=== PATIENT | male | born 1945 | race Caucasian/White ===

== ENCOUNTER 2020-02-09 07:47 | Inpatient (IN) ==
--- NOTE | 2020-01-12 10:53 | PAT Medication Instructions ---
Medication Instructions Date of Service January 12, 2020 Home Medications acetaminophen [Tylenol Extra Strength] 1,000 mg PO Q6H PRN aspirin [Aspir-81] 81 mg PO BID atorvastatin 10 mg PO PM carvedilol 12.5 mg PO BID cholecalciferol (vitamin D3) 25 mcg PO BID ibuprofen 200 mg PO Q6H PRN lisinopril 20 mg PO BID nitroglycerin [Nitrostat] 0.4 mg SUBLINGUAL UD PRN omeprazole 20 mg PO QAM spironolactone 25 mg PO BID Continue as directed nitroglycerin [Nitrostat] 0.4 mg SUBLINGUAL UD PRN ASK your surgeon for instructions aspirin [Aspir-81] 81 mg PO BID ibuprofen 200 mg PO Q6H PRN DO NOT take the morning of surgery cholecalciferol (vitamin D3) 25 mcg PO BID lisinopril 20 mg PO BID spironolactone 25 mg PO BID Take morning of surgery With a small sip of water, OTHERWISE NOTHING TO EAT OR DRINK AFTER MIDNIGHT: acetaminophen [Tylenol Extra Strength] 1,000 mg PO Q6H PRN (if needed, may be taken up to four hours before surgery) carvedilol 12.5 mg PO BID omeprazole 20 mg PO QAM Take evening before surgery acetaminophen [Tylenol Extra Strength] 1,000 mg PO Q6H PRN (if needed) atorvastatin 10 mg PO PM carvedilol 12.5 mg PO BID cholecalciferol (vitamin D3) 25 mcg PO BID lisinopril 20 mg PO BID spironolactone 25 mg PO BID Other Notes If you have any questions please call us at [phone] or [phone] or [phone] or [phone]
--- NOTE | 2020-01-14 11:06 | History & Physical Report ---
Date of Service January 14, 2020 date of surgery: 02-09-20 Assessment & Plan (1) Arthritis of knee, left: Risks and benefits of procedure discussed in detail today, patient would like to proceed with a Left total knee replacement at [facility] as scheduled. will obtain medical clearance from Dr Delatorre office prior to surgery as well as obtain PATs at [facility]. Will place on ASA 81mg po bid x 1 month post op, f/u 2 weeks post op for routine post-operative care and x-ray, sooner if having any problems. will make arrangements for HHPT at the time of discharge. At this point in time, has failed conservative measures and would like to proceed with surgical intervention. The risks and benefits have been discussed including, but not limited to, risk of infection, nerve injury, stiffness, loss of motion, failure to improve, etc. Reasonable outcomes and options of treatment were discussed. An explanation of appropriate alternatives to the procedure that may be advantageous were discussed and their risks and benefits, as well as the risks and benefits of not proceeding with treatment. I offered to answer any additional inquiries concerning the treatment involved. All the patient's questions were answered. The patient is agreeable, understanding of the treatment plan and alternatives, and wishes to proceed with the treatment plan. History of Present Illness Chief Complaint: left knee pain Primary Care Provider: Willam Godfrey Mr Conway is a 74 year old male who complains of left knee pain, presents for pre-op eval prior to a left total knee replacement at [facility]. He presents with pain and instability on the left side. He states that the symptoms have been chronic traumatic. Patient reports that he fell off of a barn roof when he was a child and injured his left knee, had previous left knee arthroscopy early . The symptoms occur constantly with intermittent worsening. Currently the patient states that the symptoms are moderate-severe and is described as aching, sharp and throbbing. The symptoms occur continuously. The symptoms are aggravated by ascending stairs, daily activities, first steps while awake, kneeling, repetitive activities, sleeping on the affected side, squatting, standing, walking and weight bearing. In addition to left knee pain the patient is also experiencing decreased mobility, difficulty bending, difficulty going to sleep, limping, nighttime awakening, pain, stiffness, tenderness, weakness, "giving out", clicking, cracking, crepitus and crunching. Prior NSAIDs include IBU and Aleve. Prior pain medications include Tylenol. had previous knee arthroscopy approximately 15-20 years ago. Allergies Allergy/AdvReac Type Severity Reaction Status Date / Time No Known Allergies Allergy Verified 01/10/20 14:25 Home Medications Home Medications Medication Instructions Recorded Confirmed Type acetaminophen [Tylenol Extra 1,000 mg PO Q6H PRN 01/10/20 01/10/20 History Strength] aspirin [Aspir-81] 81 mg PO BID 01/10/20 01/10/20 History atorvastatin 10 mg PO PM 01/10/20 01/10/20 History carvedilol 12.5 mg PO BID 01/10/20 01/10/20 History cholecalciferol (vitamin D3) 25 mcg PO BID 01/10/20 01/10/20 History [Vitamin D3] ibuprofen 200 mg PO Q6H PRN 01/10/20 01/10/20 History lisinopril 20 mg PO BID 01/10/20 01/10/20 History nitroglycerin [Nitrostat] 0.4 mg SUBLINGUAL UD PRN 01/10/20 01/10/20 History omeprazole 20 mg PO QAM 01/10/20 01/10/20 History spironolactone 25 mg PO BID 01/10/20 01/10/20 History Past Med/Surg History Medical History Diverticular disease Enlarged prostate GERD (gastroesophageal reflux disease) Hyperlipidemia Hypertension Myocardial Infarction ER-WENT TO [facility]-CARDIAC CATH-ANGIO[LASTY/ STENT Surgical History History of arthroscopy LEFT KNEE History of cardiac cath 1 STENT-2010 [facility] History of colonoscopy MULTIPLE Family History (Updated 01/14/20 @ 11:06 by Rajan Johnson PA-C) Unknown No family history of adverse response to anesthesia Social History Preferred Language: Colombian Communication Ability: Effective 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: No Beliefs That Will Affect Care: None Current Living Situation: Spouse and Family Other Information That Helps Us Care for You: No Feels Safe at Home: Yes Safety Concerns: Feels Safe At This Time Smoking Status: Former smoker Do You Dip or Chew Tobacco: No ; Smoking End Date: QUIT 1990 ; Second Hand Exposure: Yes (ON OCC AT WORK) ; Hx Alcohol Use: Yes Alcohol type: beer Hx Substance Use: No Review of Systems Review of Systems: All systems reviewed & are unremarkable except as noted in HPI & below Constitutional: no fever, no chills and no sweats Respiratory: no cough and no dyspnea Cardiovascular: no chest pain, no dyspnea and no orthopnea Gastrointestinal: no abdominal pain, no nausea and no vomiting Musculoskeletal: as per Subjective / HPI Physical Exam Physical Exam: Ht: 6ft Wt: 96.16 kg BP: 134/62 Constitutional: WD/WN, vitals as above no acute distress Respiratory: normal respiratory effort, lungs clear to auscultation no respiratory distress, no labored breathing and does not use accessory muscles Cardiovascular: RRR, no murmur, no edema Gastrointestinal (Abdomen): normal bowel sounds, soft, nontender, no hepatosplenomegaly Musculoskeletal: Knee: + knee abnormal to inspection (left knee- ), + effusion (+2 effusion), + surgical incision (well healed portals), + limited ROM of knee (ROM 0/3/110), + knee ROM with crepitation, + joint line tenderness (medial joint line) and + Carlton's sign positive; no deformity, no skin erythema, no ecchymosis, no valgus laxity, no varus laxity, anterior drawer test negative, Smitha's sign negative and pivot shift test negative Results & Data Results & Data ([facility]) Diagnostic Findings Left Knee X-ray: left knee series confirm advanced degenerative changes to the left knee with varus alignment, greatest medial compartments and patellofemoral joint, showing joint space narrowing, osteophyte formation and subchondral sclerosis. no acute bony pathology noted.
--- NOTE | 2020-01-14 12:59 | Anesthesiology Consultation ---
Date of Service January 14, 2020 Assessment & Plan (1) Encounter for pre-operative examination: COVID Status: As of 01/13 assessment, patient denies travel to endemic area, known exposure/sick contacts, or symptoms of COVID19. Preoperative COVID19 testing to be completed prior to surgery. Chart Review Chart Review: Acceptable Risk for Surgery (pending surgeon-ordered PCP clearance 01/25) and Patient seen in Pre Admission Testing Teaching & Discussion Instructed NPO after midnight before surgery, except medications with 15 cc of water. Medication instructions provided according to the PAT guidelines. History Surgery Operation Date: 02/09/20 09:40 Proposed Procedures p Left Total Knee Arthroplasty - Alonzo Randall DO Height/Weight Height: 6 ft Weight: 101.4 kg Allergies Allergy/AdvReac Type Severity Reaction Status Date / Time No Known Allergies Allergy Verified 01/10/20 14:25 Medications Home Medications Medication Instructions Recorded Confirmed Last Taken acetaminophen [Tylenol Extra 1,000 mg PO Q6H PRN 01/10/20 01/10/20 Unknown Strength] aspirin [Aspir-81] 81 mg PO BID 01/10/20 01/10/20 Unknown atorvastatin 10 mg PO PM 01/10/20 01/10/20 Unknown carvedilol 12.5 mg PO BID 01/10/20 01/10/20 Unknown cholecalciferol (vitamin D3) 25 mcg PO BID 01/10/20 01/10/20 Unknown [Vitamin D3] ibuprofen 200 mg PO Q6H PRN 01/10/20 01/10/20 Unknown lisinopril 20 mg PO BID 01/10/20 01/10/20 Unknown nitroglycerin [Nitrostat] 0.4 mg SUBLINGUAL UD PRN 01/10/20 01/10/20 Unknown omeprazole 20 mg PO QAM 01/10/20 01/10/20 Unknown spironolactone 25 mg PO BID 01/10/20 01/10/20 Unknown Past Medical History Medical History CAD (coronary artery disease) Previously followed with Dr. 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 Past Family History Family History Unknown No family history of adverse response to anesthesia Past Surgical History Surgical History History of arthroscopy LEFT KNEE History of cardiac cath 1 [facility] History of colonoscopy MULTIPLE Past Anesthesia History No Hx of Anesthesia Complications and No Family Hx of Anesthesia Complications History of PONV No Hx of PONV and No Hx of Motion Sickness Social History Smoking Status: Former smoker Do You Dip or Chew Tobacco: No Smoking End Date: QUIT 1990 Hx Alcohol Use: Yes Alcohol type: beer alcohol intake frequency: holidays/special occasions only Hx Substance Use: No Review of Systems Pt denies any recent chest pain, shortness of breath, palpitations, cough, fever or URI. Physical Exam Vital Signs BP: 113/66 P: 50 SPO2: 99% RA T: 98.6 F R: 16 ENMT Mouth: + edentulous Thyromental Distance: > or= 3.5 Finger Breadths (4) Mallampati Class: I Neck normal visual inspection; neck extension not limited Respiratory normal respiratory effort Auscultation: lungs clear to auscultation bilaterally Cardiovascular Rate/Rhythm: regular rhythm and + bradycardic Heart Sounds: no murmur Extremities: no edema Testing Laboratory Results 01/14/20 13:15 01/14/20 13:15 PT 11.4 Seconds (9.0-12.0) 01/14/20 13:15 INR 1.1 (0.9-1.1) 01/14/20 13:15 APTT 27.6 Seconds (21.0-31.0) 01/14/20 13:15 Hemoglobin A1c 5.7 % (4.5-5.6) H 01/14/20 13:15 Urine Color Yellow 01/14/20 Unknown Urine Appearance Clear (Clear) 01/14/20 Unknown Urine pH 5.0 (4.5-7.5) 01/14/20 Unknown Ur Specific [place] 1.019 (1.000-1.030) 01/14/20 Unknown Urine Protein Negative (Negative) 01/14/20 Unknown Urine Glucose (UA) Negative (Negative) 01/14/20 Unknown Urine Ketones Negative (Negative) 01/14/20 Unknown Urine Nitrite Negative (Negative) 01/14/20 Unknown Ur Leukocyte Esterase Negative (Negative) 01/14/20 Unknown Blood Type O Negative 01/14/20 13:15 Antibody Screen NEGATIVE 01/14/20 13:15 Electrocardiogram Date: 01/14/20 Findings: + SB @ (49bpm) Chest X-Ray Date: 01/14/20 Findings: + NAD
--- NOTE | 2020-01-14 13:39 | XRay Report ---
XR chest Pre-admission PA/Lat HISTORY: 74 years-old Male pat preoperative exam. No acute chest complaints COMPARISON: None TECHNIQUE: PA and lateral views of the chest FINDINGS: Cardiomediastinal and hilar silhouettes are within normal limits. Nipple shadow projects over the rig ht lung base. No pneumothorax, pleural effusion, airspace consolidation or overt pulmonary edema. Bon es of the chest appear grossly intact. Degenerative changes of the shoulders and spine. IMPRESSION: No acute process. ACT 112: Negative or not required by law. The above report was generated using voice recognition software. It may contain grammatical, syntax o r spelling errors. Electronically signed by: Nigel Huang M.D. 01/14/2020 1:37 PM
[2020-01-14 13:55] LABS: INR 1.1 (0.9-1.1); Partial Thromboplastin Time 27.6 Seconds (21.0-31.0); Prothrombin Time 11.4 Seconds (9.0-12.0)
[2020-01-14 13:56] LABS: Appearance Urine Clear (Clear); Bilirubin Urine Negative (Negative); Blood Urine Negative (Negative); Color Urine Yellow; Glucose Urine UA Negative (Negative); Ketones Urine Negative (Negative); Leukocyte Esterase Urine Negative (Negative); Nitrite Urine Negative (Negative); Protein Urine Negative (Negative); Specific Gravity Urine 1.019 (1.000-1.030); Urobilinogen Urine Negative (Negative)
[2020-01-14 13:58] LABS: Basophils # (auto) 0.11 K/uL (0-0.2); Basophils % (auto) 2.1 %; Eosinophils # (auto) 0.45 K/uL (0-0.5); Eosinophils % (auto) 8.4 %; Hematocrit (blood only) 37.4 % (42-52); Immature Granulocytes # (auto) 0.01 K/uL (0.00-0.02); Immature Granulocytes % (auto) 0.2 %; Lymphocytes # (auto) 2.35 K/uL (1.2-3.4); Lymphocytes % (auto) 43.9 %; Mean Corpuscular Hemoglobin 30.6 pg (25-34); Mean Corpuscular Hgb Conc 34.8 g/dL (32-36); Mean Platelet Volume 8.9 fL (7.4-10.4); Monocytes # (auto) 0.39 K/uL (0.11-0.59); Monocytes % (auto) 7.3 %; Neutrophils # (auto) 2.04 K/uL (1.4-6.5); Neutrophils % (auto) 38.1 %; Platelet Count 223 K/uL (130-400); RDW Coefficient of Variation 12.7 % (11.5-14.5); RDW Standard Deviation 40.8 fL (36.4-46.3); Red Blood Count 4.25 M/uL (4.7-6.1); White Blood Count 5.35 K/uL (4.8-10.8)
[2020-01-14 14:02] LABS: Estimated Average Glucose 117 mg/dl; Hemoglobin A1C 5.7 % (4.5-5.6)
[2020-01-14 14:27] LABS: Albumin Level 3.7 gm/dl (3.4-5.0); BUN Creatinine Ratio 17.1 (10-20); Calcium 9.6 mg/dl (8.5-10.1); Creatinine Clr Calc Pharmacy 57.9 ml/min; Est GFR (African American) 57.4; Est GFR (Non-African American) 49.5; Potassium 4.7 mmol/L (3.5-5.1)
--- NOTE | 2020-01-14 19:22 | Electrocardiogram Report ---
Test Reason : Blood Pressure : / mmHG Vent. Rate : 049 BPM Atrial Rate : 049 BPM P-R Int : 178 ms QRS Dur : 084 ms QT Int : 460 ms P-R-T Axes : 074 020 032 degrees QTc Int : 415 ms Sinus bradycardia Otherwise normal ECG No previous ECGs available Confirmed by Miki Carmichael ([id number]) on 01/14/2020 7:22:23 PM Referred By: Alonzo Randall Confirmed By:Bryce Carmichael
[~2020-02-09 07:47] MED LIST: ACETAMINOPHEN 500 MG TAB PO SCH; CEFAZOLIN 2000MG 2,000 MG/15 ML SYR IV SCH; CeleBREX 200 MG CAP PO SCH; FAMOTIDINE 20 MG TAB PO SCH; GABAPENTIN 300 MG CAP PO SCH; LR 500ML BOLUS, THEN 15ML/HR IV SCH; METOCLOPRAMIDE HCL 10 MG TABLET PO SCH; ROPIVACAINE 0.5% HCL/PF 150 MG, BUPIVACAINE 0.5% MPF 30 ML, EPINEPHrine 30MG/30ML (OR U... INSTIL SCH; TRANEXAMIC ACID 1,000 MG **IV Intra-op IV SCH; TRANEXAMIC ACID 1,000 MG **IV Pre-op IV SCH; dexAMETHasone 4 MG TAB PO SCH
[2020-02-09] MEDS ORDERED: BUPIVACAINE 0.5 % 5 MG/1 ML PF 10ML VIAL ONE (07:52)
[2020-02-09] MEDS ORDERED: ROPIVACAINE 0.5% 5 MG/ML 30 ML VIAL ONE (07:52)
[2020-02-09] MEDS ORDERED: EPINEPHrine INJ 1 MG/ML AMP ONE (07:52)
[2020-02-09] MEDS ORDERED: PROPOFOL IV EMULSION 10 MG/ML 20 ML VIAL IV ONE (08:08)
[2020-02-09] MEDS ORDERED: MIDAZOLAM HCL 1 MG/ML 2ML VIAL ONE (08:08)
[2020-02-09] MEDS ORDERED: LIDOCAINE HCL 2% 2 ML VIAL/AMP(20MG/ML) INFIL ONE (08:08)
--- NOTE | 2020-02-09 08:32 | History & Physical Bridge Note ---
Date of Service February 09, 2020 History & Physical Bridge Note I have examined the patient, reviewed the History & Physical and in the interval since the performance of the History & Physical I have noted the following changes of clinical significance: no changes noted
[2020-02-09] MEDS ORDERED: ORTHO JOINT ANESTHETIC ONE (09:14)
[2020-02-09] MEDS ORDERED: BACITRACIN INJ 50,000 UNIT VIAL ONE (09:14)
[2020-02-09] MEDS ORDERED: FLUMAZENIL 0.1 MG/1 ML 10 ML VIAL IV PRN (09:49)
[2020-02-09] MEDS ORDERED: ePHEDrine sulfate 50 MG/ML AMP IV PRN (09:49)
[2020-02-09] MEDS ORDERED: PROMETHAZINE HCL 12.5 MG in SODIUM CHLORIDE 0.9% 50 ML IV PRN (09:49)
[2020-02-09] MEDS ORDERED: NALOXONE HCL 0.4 MG/1 ML VIAL/CARP IV PRN ×2 (09:49→12:46)
[2020-02-09] MEDS ORDERED: ONDANSETRON INJ 2 MG/ML 2 ML VIAL IV PRN ×2 (09:49→12:46)
[2020-02-09] MEDS ORDERED: fentaNYL citrate 100 MCG/2 ML VIAL IV PRN (09:49)
[2020-02-09] MEDS ORDERED: ATROPINE SULFATE 0.1 MG/ML 10ML SYR IV PRN (09:49)
[2020-02-09] MEDS ORDERED: ePHEDrine sulfate 50 MG/ML SYR ONE (10:02)
--- NOTE | 2020-02-09 10:51 | Operative Report ---
Post Operative Report Pre & Post Diagnosis Operation Date: 02/09/20 09:40 Pre-Op Diagnosis: Left Knee Osteoarthritis Post-Op Diagnosis: Left Knee Osteoarthritis I identified the patient and participated in the time-out.: Yes Procedure Operation Date: 02/09/20 09:40 Actual Procedures utilizing Carrington [employer] NephAdCrimson kmhailey 2 patient matched total knee arthroplasty size 9 femur size 8 tibia size 12 polyethylene 38 oval patella p Left Total Knee Arthroplasty(Left) - Alonzo Randall DO Surgeon Alozno Randall DO Dry Cell Assembly Supervisor ZACARIAS Lares Estimated Blood Loss 5 Findings Consistent with Post-Op Diagnosis Patient presents with severe end-stage tricompartmental degenerative joint disease left knee varus alignment subchondral sclerosis marginal osteophytes eburnated [id number] with a large effusion. Specimens Bone and cartilage Drains Medium bore Hemovac Anesthesia Type MAC Spinal Regional Complications none Disposition Accompanied Patient To Recovery: No Disposition: Recovery Room Indications Patient presents with severe end-stage DJD no response to conservative management above intraoperative findings no time surgery patient fell attempted Visco supplementation corticosteroid injection bracing relative rest activity modification presents for left total knee arthroplasty Description of Procedure After proper prepping and draping of the left lower extremity anterior midline incision was made over the region of the extensor extensor mechanism after meticulous hemostasis was obtained and maintained in subcutaneous tissues a medial parapatellar incision was made The patella was subluxed lateralward the medial lateral gutter were cleaned from any hypertrophic synovitis and scar tissue of the distal femoral block was placed and the distal femoral osteotomy cut was made subsequently the chamfers anterior and posterior osteotomy cuts were made utilizing the 4-in-1 block the tibia was subsequently subluxed anteriorward medial and ateral meniscal remnants were excised in their entirety remnants of the anterior and posterior cruciate ligaments were excised in their entirety excellent exposure of the proximal tibia was obtained the tibial osteotomy guide was placed on the proximal tibial osteotomy cut was made once again the knee was irrigated with copious amounts of sterile saline solution the patella was subsequently everted lateralward thickened scar tissue around the patella was removed the patella was subsequently cut utilizing a freehand technique and was drilled prepared for final preparation and placement of patella socially flexion-extension gaps were checked and the equal and symmetric trials were placed to the appropriate femoral and tibial trials with poly-spacer being placed for equal flexion and extension gaps and full range of motion including extension to 0 and flexion to 140 the trial components after having been taken to recovery range of motion was subsequently removed meticulous hemostasis was obtained and maintained subsequently a knee block injection of joint cocktail including ropivacaine 0.5% 150 mg. Bupivacaine 0.5% epinephrine 1-200,030 mL's toradol 30 mg dexamethasone 4 mg ketamine 10 mg clonidine 100 micrograms normal saline solution 30 mg was infiltrated into the soft tissues of the posterior knee medial lateral gutters and periosteal synovium special attention was paid to protect neurovascular structures at all times subsequently trial components having been removed the knee was irrigated with sterile saline solution. debris was removed the proximal tibia was subsequently prepared and was made ready for the placement of the tibial component tibial component was also cemented and tamped into position the femoral component was subsequently placed and cemented in the position the patellar component was subsequently cemented in position because hemostasis once again obtained and maintained wound having been thoroughly irrigated with debridement and debridement lavage was performed as well as a medial parapatellar incision closed with #1 Vicryl in interrupted fashion subcutaneous was closed with #2 Vicryl skin was closed with skin clips. PA-C was necessary for prepping and drapping as well as wound closure of deep fascia Sub cutaneous tissue and skin and was necessary for the case. A sterile compressive dressing was placed patient was taken to recovery in stable condition of report dictated by Prakash I attest to the content of the Intraoperative Record and any orders documented therein. Any exceptions are noted below. I attest to the content of the Intraoperative Record and any orders documented therein. Any exceptions are noted below.
--- NOTE | 2020-02-09 12:03 | XRay Report ---
XR knee LT 1 or 2V routine CLINICAL HISTORY: Surgical Post Op COMPARISON: None. DISCUSSION: There are postsurgical changes of a total left knee arthroplasty and patellar resurfacing . The femoral tibial components appear well seated. There is an overlying surgical drain. There is ga s present within the soft tissues consistent with recent surgery. IMPRESSION: Postsurgical changes of a total left knee arthroplasty. ACT 112: Negative or not required by law. Electronically signed by: Timi Scherer M.D. 02/09/2020 12:02 PM
[2020-02-09] MEDS ORDERED: NITROGLYCERIN SL 0.4 MG/TAB TAB SL PRN (12:46)
[2020-02-09] MEDS ORDERED: OXYCODONE HCL IR 5 MG TAB (IMMEDIATE RELEASE) PO PRN (12:46)
[2020-02-09] MEDS ORDERED: HYDROmorphone INJ 1 MG/ML SYRINGE IV PRN (12:46)
[2020-02-09] MEDS ORDERED: MAGNESIUM HYDROXIDE SUSP 30 ML UDC PO PRN (12:46)
[2020-02-09] MEDS ORDERED: METOCLOPRAMIDE HCL INJ 5 MG/ML 2 ML VIAL IV PRN (12:46)
[2020-02-09] MEDS ORDERED: bisacodyL 10 MG SUPP PR PRN (12:46)
[2020-02-09] MEDS: SODIUM CHLORIDE 0.9% 1000ML 1,000 ML IV SCH ×2 (13:37→23:33)
[2020-02-09] MEDS: KETOROLAC TROMETHAMINE 15 MG/ML VIAL IV SCH ×2 (13:40→20:35)
--- NOTE | 2020-02-09 13:51 | Anesthesiology Progress Note ---
Date of Service February 09, 2020 Anesthesia Post Procedure Vital Signs Vital Signs: Temp Pulse Pulse Resp BP Pulse Ox 02/09/20 13:35 36.2 C L 54 L 14 117/64 99 02/09/20 13:15 36.9 C 55 L 14 126/68 100 02/09/20 12:25 36.4 C L 53 L 16 113/68 100 02/09/20 12:00 52 L 16 105/64 98 02/09/20 11:50 36.2 C L 52 L 16 108/66 100 02/09/20 11:40 50 L 16 97/60 L 100 02/09/20 11:30 36.0 C L 53 L 16 102/68 100 02/09/20 09:09 53 L 20 120/66 100 02/09/20 08:41 37.1 C 50 L 20 131/70 99 Pain Intensity Left Knee: Pain Intensity: 2 Transfer of Care Handoff Completed per policy Notes Mental Status: alert / awake / arousable Patient Amnestic to Procedure: Yes Nausea / Vomiting: adequately controlled Pain: adequately controlled Airway Patency, RR, SpO2: stable & adequate BP & HR: stable & adequate Hydration State: stable & adequate Neuraxial Anesthesia: was administered and sensory block is resolving Anesthetic Complications: no major complications apparent
[2020-02-09] MEDS: ACETAMINOPHEN 500 MG TAB PO SCH (17:59)
[2020-02-09] MEDS: CEFAZOLIN 2000MG 2,000 MG/15 ML SYR IV SCH (18:04)
[2020-02-09] MEDS: CHOLECALCIFEROL 1,000 UNITS 25 MCG TAB PO SCH (20:31)
[2020-02-09] MEDS: SENNA 8.6 MG TAB PO SCH (20:31)
[2020-02-09] MEDS: ATORVASTATIN 10 MG TAB PO SCH (20:31)
[2020-02-09] MEDS: carvediloL 12.5 MG TAB PO SCH (20:31)
[2020-02-09] MEDS: DOCUSATE SODIUM 100 MG CAP PO SCH (20:31)
[2020-02-09] MEDS: ASPIRIN 81 MG ECTAB PO SCH (20:31)
[2020-02-10] MEDS: KETOROLAC TROMETHAMINE 15 MG/ML VIAL IV SCH ×2 (03:23→08:06)
[2020-02-10] MEDS: CEFAZOLIN 2000MG 2,000 MG/15 ML SYR IV SCH (03:23)
[2020-02-10] MEDS: ACETAMINOPHEN 500 MG TAB PO SCH ×3 (05:22→21:49)
[2020-02-10] MEDS: MULTIVITAMIN TAB PO SCH (08:09)
[2020-02-10] MEDS: DOCUSATE SODIUM 100 MG CAP PO SCH ×2 (08:09→21:50)
[2020-02-10] MEDS: carvediloL 12.5 MG TAB PO SCH ×2 (08:09→21:47)
[2020-02-10] MEDS: CHOLECALCIFEROL 1,000 UNITS 25 MCG TAB PO SCH ×2 (08:09→21:50)
[2020-02-10] MEDS: ASPIRIN 81 MG ECTAB PO SCH ×2 (08:09→21:49)
[2020-02-10 08:21] LABS: Hematocrit (blood only) 31.9 % (42-52); Hemoglobin 11.1 g/dL (14.0-18.0); Mean Corpuscular Hemoglobin 30.4 pg (25-34); Mean Corpuscular Hgb Conc 34.8 g/dL (32-36); Mean Corpuscular Volume 87.4 fL (80-100); Mean Platelet Volume 8.9 fL (7.4-10.4); Platelet Count 195 K/uL (130-400); RDW Coefficient of Variation 12.8 % (11.5-14.5); RDW Standard Deviation 41.2 fL (36.4-46.3); Red Blood Count 3.65 M/uL (4.7-6.1); White Blood Count 14.01 K/uL (4.8-10.8)
--- NOTE | 2020-02-10 08:29 | Orthopedic Progress Note ---
Date of Service February 10, 2020 Assessment & Plan (1) Arthritis of knee, left: Postop day 1 status post left total knee arthroplasty. Leukocytosis-patient asymptomatic. Likely due to surgical stress and preoperative steroids. BMP pending. PT/OT protocols. Weightbearing as tolerated. DVT prophylaxis with SCDs, LUKE hose and aspirin p.o. twice daily Pain management as written. Discharge planning-patient planning on home health services upon discharge. Admission and Anticipated Discharge Date Admission Date: February 09, 2020 Supervising Physician Co-Signing Physician Notes Patient seen and examined. Agree with ZACARIAS Rashid's note above. Patient is doing very well. Pain well controlled. Making good progress with therapy, and ambulating in hallway. He wants to go home today. He does have a good bit of Hemovac drain output, and this will need to stay in until tomorrow, and he is okay with this. We will see if we can get things arranged for discharge today. Subjective Postop day 1 Patient currently sitting up in bed awake and alert. Pain is controlled. Denies shortness of breath, chest pain, lightheadedness. No complaints currently. Physical Exam Physical Exam: Dressings are clean, dry, and intact. Calves are soft nontender. Neurovascular is intact. Toes are mobile. He has good dorsiflexion and plantarflexion of the left foot. Hemovac drainage was 150 mL's from the pre vious shift. Results & Data ([facility]) Vital Signs (Past 12 Hours) Vital Signs Temp Pulse Resp BP Pulse Ox 02/10/20 08:09 61 02/10/20 07:40 36.6 C 53 L 16 131/74 99 02/10/20 07:22 36.8 C 55 L 16 131/75 99 02/10/20 03:48 36.7 C 56 L 14 118/68 97 02/10/20 00:41 36.5 C 58 L 14 126/67 98 02/09/20 20:28 52 L 123/66 100 Laboratory Results Laboratory Results WBC 14.01 K/uL (4.8-10.8) H 02/10/20 07:50 RBC 3.65 M/uL (4.7-6.1) L 02/10/20 07:50 Hgb 11.1 g/dL (14.0-18.0) L 02/10/20 07:50 Hct 31.9 % (42-52) L 02/10/20 07:50 MCV 87.4 fL (80-100) 02/10/20 07:50 MCH 30.4 pg (25-34) 02/10/20 07:50 MCHC 34.8 g/dL (32-36) 02/10/20 07:50 RDW Std Deviation 41.2 fL (36.4-46.3) 02/10/20 07:50 RDW Coeff of Carissa 12.8 % (11.5-14.5) 02/10/20 07:50 Plt Count 195 K/uL (130-400) 02/10/20 07:50 MPV 8.9 fL (7.4-10.4) 02/10/20 07:50 Immature Gran % (Auto) 0.2 % 01/14/20 13:15 Neut % (Auto) 38.1 % 01/14/20 13:15 Lymph % (Auto) 43.9 % 01/14/20 13:15 Kimball % (Auto) 7.3 % 01/14/20 13:15 Eos % (Auto) 8.4 % 01/14/20 13:15 Baso % (Auto) 2.1 % 01/14/20 13:15 Immature Gran # (Auto) 0.01 K/uL (0.00-0.02) 01/14/20 13:15 Neut # (Auto) 2.04 K/uL (1.4-6.5) 01/14/20 13:15 Lymph # (Auto) 2.35 K/uL (1.2-3.4) 01/14/20 13:15 Kimball # (Auto) 0.39 K/uL (0.11-0.59) 01/14/20 13:15 Eos # (Auto) 0.45 K/uL (0-0.5) 01/14/20 13:15 Baso # (Auto) 0.11 K/uL (0-0.2) 01/14/20 13:15 PT 11.4 Seconds (9.0-12.0) 01/14/20 13:15 INR 1.1 (0.9-1.1) 01/14/20 13:15 APTT 27.6 Seconds (21.0-31.0) 01/14/20 13:15 PTT Ratio 1.0 01/14/20 13:15 Sodium 138 mmol/L (136-145) 01/14/20 13:15 Potassium 4.7 mmol/L (3.5-5.1) 01/14/20 13:15 Chloride 108 mmol/L (98-107) H 01/14/20 13:15 Carbon Dioxide 25 mmol/L (21-32) 01/14/20 13:15 Anion Gap 5.0 (3-11) 01/14/20 13:15 BUN 24 mg/dl (7-18) H 01/14/20 13:15 Creatinine 1.40 mg/dl (0.6-1.4) 01/14/20 13:15 Est Cr Clr Drug Dosing 57.9 ml/min 01/14/20 13:15 Est GFR ( Amer) 57.4 01/14/20 13:15 Est GFR (Non-Af Amer) 49.5 01/14/20 13:15 BUN/Creatinine Ratio 17.1 (10-20) 01/14/20 13:15 Glucose 102 mg/dl (70-99) H 01/14/20 13:15 Estimat Average Glucose 117 mg/dl 01/14/20 13:15 Hemoglobin A1c 5.7 % (4.5-5.6) H 01/14/20 13:15 Calcium 9.6 mg/dl (8.5-10.1) 01/14/20 13:15 Albumin 3.7 gm/dl (3.4-5.0) 01/14/20 13:15 Urine Color Yellow 01/14/20 Unknown Urine Appearance Clear (Clear) 01/14/20 Unknown Urine pH 5.0 (4.5-7.5) 01/14/20 Unknown Ur Specific Jbphh 1.019 (1.000-1.030) 01/14/20 Unknown Urine Protein Negative (Negative) 01/14/20 Unknown Urine Glucose (UA) Negative (Negative) 01/14/20 Unknown Urine Ketones Negative (Negative) 01/14/20 Unknown Urine Blood Negative (Negative) 01/14/20 Unknown Urine Nitrite Negative (Negative) 01/14/20 Unknown Urine Bilirubin Negative (Negative) 01/14/20 Unknown Urine Urobilinogen Negative (Negative) 01/14/20 Unknown Ur Leukocyte Esterase Negative (Negative) 01/14/20 Unknown Blood Type O Negative 01/14/20 13:15 Antibody Screen NEGATIVE 01/14/20 13:15
--- NOTE | 2020-02-10 08:42 | Anesthesiology Progress Note ---
Date of Service February 10, 2020 Anesthesia Post Procedure Vital Signs Vital Signs: Temp Pulse Pulse Resp BP Pulse Ox 02/10/20 08:09 61 02/10/20 07:40 36.6 C 53 L 16 131/74 99 02/10/20 07:22 36.8 C 55 L 16 131/75 99 02/10/20 03:48 36.7 C 56 L 14 118/68 97 02/10/20 00:41 36.5 C 58 L 14 126/67 98 02/09/20 20:28 52 L 123/66 100 02/09/20 19:41 36.4 C L 53 L 20 118/68 99 02/09/20 15:29 36.3 C L 56 L 16 122/73 97 02/09/20 14:24 56 L 16 112/63 100 02/09/20 13:35 36.2 C L 54 L 14 117/64 99 02/09/20 13:15 36.9 C 55 L 14 126/68 100 02/09/20 12:25 36.4 C L 53 L 16 113/68 100 02/09/20 12:00 52 L 16 105/64 98 02/09/20 11:50 36.2 C L 52 L 16 108/66 100 02/09/20 11:40 50 L 16 97/60 L 100 02/09/20 11:30 36.0 C L 53 L 16 102/68 100 02/09/20 09:09 53 L 20 120/66 100 Pain Intensity Left Knee: Pain Intensity: 2 Notes Mental Status: alert / awake / arousable Nausea / Vomiting: adequately controlled Pain: adequately controlled Airway Patency, RR, SpO2: stable & adequate BP & HR: stable & adequate Hydration State: stable & adequate Neuraxial Anesthesia: was administered and sensory block resolved Anesthetic Complications: no major complications apparent and Pt Satisfied with anesthetic care
[2020-02-10 09:02] LABS: BUN Creatinine Ratio 17.9 (10-20); Calcium 8.4 mg/dl (8.5-10.1); Creatinine Clr Calc Pharmacy 47.9 ml/min; Est GFR (Non-African American) 39.7; Potassium 4.4 mmol/L (3.5-5.1)
--- NOTE | 2020-02-10 16:50 | Cardiology Consultation ---
Date of Consultation February 10, 2020 Assessment & Plan (1) CAD (coronary artery disease): He had a remote history of coronary disease. By his description this may have been an embolic event rather than acute coronary syndrome in the classic sense. However, he did undergo percutaneous intervention to the LAD. He has not had symptoms of coronary insufficiency or angina subsequent to that event. He appears to have good exercise tolerance which was reduced recently by discomfort of the left knee. He is not appear to have any symptoms currently of coronary insufficiency or angina. I would agree with continued secondary prevention of coronary disease. He takes low-dose aspirin and low-dose atorvastatin. (2) Bradycardia: He appears to have an element of sinus bradycardia. This is manifest on outpatient EKG as well. He is not appear to be symptomatic from his slow heart rate. In the absence of symptoms there is no requirement for change in his medical regimen. Use of a beta-howard is indicated post CT if he truly had an acute coronary syndrome in 2011. (3) Hypertension: Blood pressure mildly elevated at this time. However, this can be monitored as an outpatient. (4) Hyperlipidemia: He appears to be on relatively low dose of atorvastatin. We do not have a lipid profile for evaluation of his lipids. Goal LDL in this individual with a history of coronary disease be less than 70. History of Present Illness Reason for Consultation: History of cardiac disease Requesting Physician: Prakash Attending Physician: Alonzo Randall, DO History of Present Illness The patient is a 74-year-old gentleman with remote history of myocardial infarction him previously undergone percutaneous intervention to the LAD in 2010. Patient recalls being told at that time the perhaps a blood clot traversed to circulatory system enlarged itself in his coronary artery. Cannot recall any specific symptoms of chest discomfort associated with the event in question, but reportedly did not look well by family members and was taken to the hospital where he was discovered to have an acute coronary syndrome. He was told that no significant damage was done to his heart from this event. He has not had any recurrent symptoms of that nature since his initial intervention. In fact, he is a very active individual who was accustomed to walking and performing moderate activity without symptoms. More recently he has been limited by left knee discomfort. Did not endorse any symptoms of exertional chest discomfort or limiting dyspnea. He denied orthopnea or paroxysmal nocturnal dyspnea. He has not noticed any palpitations or have a history of arrhythmia. No dizziness or syncope. Currently he is feeling well. He claims to have done well with physical therapy today and has already met goals for discharge. He denies significant pain at the operative site of his left knee. He is not currently having symptoms of chest discomfort or breathing difficulty. Allergies Allergy/AdvReac Type Severity Reaction Status Date / Time No Known Allergies Allergy Verified 02/09/20 08:20 Home Medications Home Medications Medication Instructions Recorded Confirmed Type acetaminophen [Tylenol Extra 1,000 mg PO Q6H PRN 01/10/20 02/09/20 History Strength] aspirin [Aspir-81] 81 mg PO BID 01/10/20 02/09/20 History atorvastatin 10 mg PO PM 01/10/20 02/09/20 History carvedilol 12.5 mg PO BID 01/10/20 02/09/20 History cholecalciferol (vitamin D3) 25 mcg PO BID 01/10/20 02/09/20 History [Vitamin D3] ibuprofen 200 mg PO Q6H PRN 01/10/20 02/09/20 History lisinopril 20 mg PO BID 01/10/20 02/09/20 History nitroglycerin [Nitrostat] 0.4 mg SUBLINGUAL UD PRN 01/10/20 02/09/20 History omeprazole 20 mg PO QAM 01/10/20 02/09/20 History spironolactone 25 mg PO BID 01/10/20 02/09/20 History Patient History Medical History CAD (coronary artery disease) Previously followed with Dr. Calloway, was discharged and told to f/u PRN Diverticular disease Enlarged prostate GERD (gastroesophageal reflux disease) Hyperlipidemia Hypertension Myocardial Infarction ER-WENT TO [facility]-CARDIAC CATH-ANGIOPLASTY/1 STENT Surgical History History of arthroscopy LEFT KNEE History of cardiac cath 1 STENT-2010 [facility] History of colonoscopy MULTIPLE Family History Unknown No family history of adverse response to anesthesia Social History Preferred Language: Colombian Communication Ability: Effective Retention Representative Required: No Beliefs That Will Affect Care: None Current Living Situation: Spouse and Family Other Information That Helps Us Care for You: No Feels Safe at Home: Yes Safety Concerns: Feels Safe At This Time Smoking Status: Former smoker Do You Dip or Chew Tobacco: No ; Smoking End Date: QUIT 1990 ; Second Hand Exposure: Yes (ON OCC AT WORK) ; Hx Alcohol Use: Yes Alcohol type: beer Hx Substance Use: No Review of Systems Review of Systems: All systems reviewed & are unremarkable except as noted in HPI & below Physical Exam Physical Exam: The patient is alert and oriented. Mood and affect appeared normal. He answered all questions appropriately. HEENT: Pupils are equal and reactive to light and accommodation. Extraocular movements are intact. The sclerae are anicteric. Neuro: Cranial nerves intact Neck: Patient's neck is supple. He has palpable carotid pulses bilaterally without bruits on auscultation. There is no evidence of jugular venous distention. The thyroid is not enlarged. Lungs: Clear to auscultation bilaterally. He has good air movement without use of accessory muscles. No rales wheezes or rhonchi. Cardiac: Heart demonstrates a regular rate and rhythm. Normal S1 and S2. No mu rmurs on examination. Pulses: The patient has palpable radial pulses bilaterally that are equal in intensity Extremities: There was no evidence of hypoperfusion. There is no cyanosis or clubbing. There is no edema. Wound VAC in left knee. Skin: I did not appreciate any rashes on examination today. Results & Data ([facility]) Vital Signs (Past 12 Hours) Vital Signs Temp Pulse Resp BP Pulse Ox 02/10/20 15:06 37.0 C 49 L 18 156/73 H 98 02/10/20 08:09 61 02/10/20 07:40 36.6 C 53 L 16 131/74 99 02/10/20 07:22 36.8 C 55 L 16 131/75 99 Laboratory Results Abnormal Lab Results 02/10/20 02/10/20 02/10/20 07:50 07:50 07:50 WBC 14.01 H RBC 3.65 L Hgb 11.1 L Hct 31.9 L MCV 87.4 MCH 30.4 MCHC 34.8 RDW Std Deviation 41.2 RDW Coeff of Carissa 12.8 Plt Count 195 MPV 8.9 Sodium 134 L Potassium 4.4 Chloride 106 Carbon Dioxide 21 Anion Gap 7.0 BUN 30 H Creatinine 1.68 H Est Cr Clr Drug Dosing 47.9 Est GFR ( Amer) 46.0 Est GFR (Non-Af Amer) 39.7 BUN/Creatinine Ratio 17.9 Glucose 112 H Calcium 8.4 L Hepatitis C Ab Screen Neg Diagnostic Findings EKG obtained 01/14/2020 revealed sinus bradycardia without evidence of old infarct. Otherwise unremarkable. PG Care Time/CCT Total # of Minutes Spent Total Time Spent with Patient: Total time spent is greater than 50% in coordination of care (as documented) at patient's floor/unit and/or counseling patient: Coding Level of Care Code 96912 Initial Inpt Care Lvl 2 Diagnoses CAD (coronary artery disease) I25.10 Bradycardia R00.1 Hypertension I10 Hyperlipidemia E78.5
[2020-02-10] MEDS ORDERED: CeleBREX 200 MG CAP PO SCH (21:00)
[2020-02-10] MEDS: ATORVASTATIN 10 MG TAB PO SCH (21:49)
[2020-02-10] MEDS: SENNA 8.6 MG TAB PO SCH (21:50)
[2020-02-11] MEDS: ACETAMINOPHEN 500 MG TAB PO SCH (05:21)
[2020-02-11 07:11] LABS: Hematocrit (blood only) 30.1 % (42-52); Hemoglobin 10.3 g/dL (14.0-18.0); Mean Corpuscular Hemoglobin 30.1 pg (25-34); Mean Corpuscular Hgb Conc 34.2 g/dL (32-36); Mean Platelet Volume 8.7 fL (7.4-10.4); Platelet Count 173 K/uL (130-400); RDW Coefficient of Variation 13.1 % (11.5-14.5); RDW Standard Deviation 42.3 fL (36.4-46.3); Red Blood Count 3.42 M/uL (4.7-6.1); White Blood Count 9.24 K/uL (4.8-10.8)
--- NOTE | 2020-02-11 07:35 | Orthopedic Progress Note ---
Date of Service February 11, 2020 Assessment & Plan (1) History of total left knee replacement: POD #2 s/p Left TKA pt/ot dvt proph with LUKE/SCD/ASA plan for d/c home with HHPT, will await labs pending this am, otherwise plan on d/c home later today Admission and Anticipated Discharge Date Admission Date: February 09, 2020 Subjective POD # 2 s/p Left TKA Review of Systems Constitutional: no fever, no chills and no sweats Respiratory: no cough and no dyspnea Cardiovascular: no chest pain and no dyspnea Gastrointestinal: no abdominal pain, no nausea and no vomiting Physical Exam Physical Exam: Vital Signs Temp 37.0 C 02/11/20 07:10 Pulse 54 L 02/11/20 07:10 Resp 20 02/11/20 07:10 BP 135/77 02/11/20 07:10 Pulse Ox 98 02/11/20 07:10 Intake & Output 02/10/20 02/11/20 02/11/20 18:59 06:59 18:59 Intake Total 650 / 1470 820 / 1470 Output Total 520 / 1021 501 / 1021 Balance 130 / 449 319 / 449 Intake: Oral 650 / 1470 820 / 1470 Output: Urine 250 / 575 325 / 575 Drain Output 270 / 445 175 / 445 Left Knee Hemo vac 270 / 445 175 / 445 # Bowel Movement s Other: # Unmeasured Voi ds 350 Constitutional: WD/WN, vitals as above no acute distress Musculoskeletal: left lower extremity: NVDI, calf SNT, negative jeremy sign. DP palpable, able to wiggle toes/ankle movement without difficulty. Prineo clean dry and intact. expected post-operative bruising noted. Results & Data ([facility]) Vital Signs (Past 12 Hours) Vital Signs Temp Pulse Resp BP Pulse Ox 02/11/20 07:10 37.0 C 54 L 20 135/77 98 02/10/20 23:39 36.9 C 58 L 14 138/72 98 02/10/20 20:52 53 L 134/72
[2020-02-11 07:44] LABS: BUN Creatinine Ratio 18.7 (10-20); Calcium 8.8 mg/dl (8.5-10.1); Creatinine Clr Calc Pharmacy 53.6 ml/min; Est GFR (African American) 52.8; Est GFR (Non-African American) 45.5; Potassium 4.2 mmol/L (3.5-5.1)
[2020-02-11] MEDS: DOCUSATE SODIUM 100 MG CAP PO SCH (09:04)
[2020-02-11] MEDS: carvediloL 12.5 MG TAB PO SCH (09:04)
[2020-02-11] MEDS: MULTIVITAMIN TAB PO SCH (09:05)
[2020-02-11] MEDS: ASPIRIN 81 MG ECTAB PO SCH (09:05)
[2020-02-11] MEDS: CHOLECALCIFEROL 1,000 UNITS 25 MCG TAB PO SCH (09:05)
--- NOTE | 2020-02-11 10:03 | Discharge Summary ---
Date of Service date of discharge: February 11, 2020 date of admission: 02-09-20 Admission HPI Per Admitting Provider Mr Conway is a 74 year old male who complains of left knee pain, presents for pre-op eval prior to a left total knee replacement at [facility]. He presents with pain and instability on the left side. He states that the symptoms have been chronic traumatic. Patient reports that he fell off of a barn roof when he was a child and injured his left knee, had previous left knee arthroscopy early . The symptoms occur constantly with intermittent worsening. Currently the patient states that the symptoms are moderate-severe and is described as aching, sharp and throbbing. The symptoms occur continuously. The symptoms are aggravated by ascending stairs, daily activities, first steps while awake, kneeling, repetitive activities, sleeping on the affected side, squatting, stand ing, walking and weight bearing. In addition to left knee pain the patient is also experiencing decreased mobility, difficulty bending, difficulty going to sleep, limping, nighttime awakening, pain, stiffness, tenderness, weakness, "giving out", clicking, cracking, crepitus and crunching. Prior NSAIDs include IBU and Aleve. Prior pain medications include Tylenol. had previous knee arthroscopy approximately 15-20 years ago. Principal Diagnosis left knee arthritis Discharge Exam Vital Signs Temp 37.0 C 02/11/20 07:10 Pulse 54 L 02/11/20 07:10 Resp 20 02/11/20 07:10 BP 135/77 02/11/20 07:10 Pulse Ox 98 02/11/20 07:10 Intake & Output 02/10/20 02/11/20 02/11/20 18:59 06:59 18:59 Intake Total 650 / 1470 820 / 1470 Output Total 520 / 1021 501 / 1021 Balance 130 / 449 319 / 449 Intake: Oral 650 / 1470 820 / 1470 Output: Urine 250 / 575 325 / 575 Drain Output 270 / 445 175 / 445 Left Knee Hemovac 270 / 445 175 / 445 # Bowel Movements Other: # Unmeasured Voids 350 Constitutional WD/WN, vitals as above no acute distress Musculoskeletal left knee: NVDI, calf SNT, negative jeremy sign. DP palpable, able to wiggle toes/ankle movement without difficulty. Prineo clean dry and intact. expected post-operative bruising noted. Discharge Data Allergies Allergy/AdvReac Type Severity Reaction Status Date / Time No Known Allergies Allergy Verified 02/09/20 08:20 Consultations 02/09/20 12:46 Consult Cardiology Routine Consult Case Management - Discharge Planning Routine Procedures Performed Operation Date: 02/09/20 09:40 Actual Procedures p Left Total Knee Arthroplasty(Left) - Alonzo Randall DO Ordered Studies 02/09/20 05:00 US - OR guided needle placemen Routine Hospital Course (1) History of total left knee replacement: POD #2 s/p Left TKA pt/ot dvt proph with LUKE/SCD/ASA plan for d/c home with HHPT, will await labs pending this am, otherwise plan on d/c home later today Laboratory Results WBC 9.24 K/uL (4.8-10.8) 02/11/20 06:51 RBC 3.42 M/uL (4.7-6.1) L 02/11/20 06:51 Hgb 10.3 g/dL (14.0-18.0) L 02/11/20 06:51 Hct 30.1 % (42-52) L 02/11/20 06:51 MCV 88.0 fL (80-100) 02/11/20 06:51 MCH 30.1 pg (25-34) 02/11/20 06:51 MCHC 34.2 g/dL (32-36) 02/11/20 06:51 RDW Std Deviation 42.3 fL (36.4-46.3) 02/11/20 06:51 RDW Coeff of Carissa 13.1 % (11.5-14.5) 02/11/20 06:51 Plt Count 173 K/uL (130-400) 02/11/20 06:51 MPV 8.7 fL (7.4-10.4) 02/11/20 06:51 Immature Gran % (Auto) 0.2 % 01/14/20 13:15 Neut % (Auto) 38.1 % 01/14/20 13:15 Lymph % (Auto) 43.9 % 01/14/20 13:15 Yell % (Auto) 7.3 % 01/14/20 13:15 Eos % (Auto) 8.4 % 01/14/20 13:15 Baso % (Auto) 2.1 % 01/14/20 13:15 Immature Gran # (Auto) 0.01 K/uL (0.00-0.02) 01/14/20 13:15 Neut # (Auto) 2.04 K/uL (1.4-6.5) 01/14/20 13:15 Lymph # (Auto) 2.35 K/uL (1.2-3.4) 01/14/20 13:15 Yell # (Auto) 0.39 K/uL (0.11-0.59) 01/14/20 13:15 Eos # (Auto) 0.45 K/uL (0-0.5) 01/14/20 13:15 Baso # (Auto) 0.11 K/uL (0-0.2) 01/14/20 13:15 PT 11.4 Seconds (9.0-12.0) 01/14/20 13:15 INR 1.1 (0.9-1.1) 01/14/20 13:15 APTT 27.6 Seconds (21.0-31.0) 01/14/20 13:15 PTT Ratio 1.0 01/14/20 13:15 Sodium 139 mmol/L (136-145) 02/11/20 06:51 Potassium 4.2 mmol/L (3.5-5.1) 02/11/20 06:51 Chloride 110 mmol/L (98-107) H 02/11/20 06:51 Carbon Dioxide 25 mmol/L (21-32) 02/11/20 06:51 Anion Gap 4.0 (3-11) 02/11/20 06:51 BUN 28 mg/dl (7-18) H 02/11/20 06:51 Creatinine 1.50 mg/dl (0.6-1.4) H 02/11/20 06:51 Est Cr Clr Drug Dosing 53.6 ml/min 02/11/20 06:51 Est GFR ( Amer) 52.8 02/11/20 06:51 Est GFR (Non-Af Amer) 45.5 02/11/20 06:51 BUN/Creatinine Ratio 18.7 (10-20) 02/11/20 06:51 Glucose 91 mg/dl (70-99) 02/11/20 06:51 Estimat Average Glucose 117 mg/dl 01/14/20 13:15 Hemoglobin A1c 5.7 % (4.5-5.6) H 01/14/20 13:15 Calcium 8.8 mg/dl (8.5-10.1) 02/11/20 06:51 Albumin 3.7 gm/dl (3.4-5.0) 01/14/20 13:15 Urine Color Yellow 01/14/20 Unknown Urine Appearance Clear (Clear) 01/14/20 Unknown Urine pH 5.0 (4.5-7.5) 01/14/20 Unknown Ur Specific [place]horn 1.019 (1.000-1.030) 01/14/20 Unknown Urine Protein Negative (Negative) 01/14/20 Unknown Urine Glucose (UA) Negative (Negative) 01/14/20 Unknown Urine Ketones Negative (Negative) 01/14/20 Unknown Urine Blood Negative (Negative) 01/14/20 Unknown Urine Nitrite Negative (Negative) 01/14/20 Unknown Urine Bilirubin Negative (Negative) 01/14/20 Unknown Urine Urobilinogen Negative (Negative) 01/14/20 Unknown Ur Leukocyte Esterase Negative (Negative) 01/14/20 Unknown Hepatitis C Ab Screen Neg (Neg) 02/10/20 07:50 Blood Type O Negative 01/14/20 13:15 Antibody Screen NEGATIVE 01/14/20 13:15 Total Time Total Time Spent Total Time Spent (In Minutes): 20 Total Time Includes: Examination of the Patient, Discharge Planning and Medication Reconciliation Discharge Plan Discharge Items Patient Disposition: Home - Home Health Services Reason For Visit: LEFT KNEE OSTEOARTHRITIS Discharge Diagnosis: left total knee replacement Condition on Discharge: Good Activity: Per Instructions section Lifting: Wait until after follow-up appointment Weightbearing: Left weightbearing Weightbearing Comment: as tolerated with walker Non-emergency contact: Surgeon Call non-emergency contact if: you have any medication questions, your temperature is above 101, your wound has increased redness, your wound has increased drainage and your wound pain has increased Follow-up/Referrals: Willam Godfrey M.D. [Primary Care Provider] - Diet: Regular Addtl Attending Provider Instructions: ACTIVITY RECOMMENDATIONS: SELF CARE INSTRUCTIONS AFTER TOTAL KNEE REPLACEMENT A. You may need to continue a physical therapy program after discharge from the hospital. There are several options available to you. Your doctor will assist you in selecting the best one for you. 1. An out-patient facility 2 to 3 times a week for therapy or home therapy. 2. Continue working on all exercises taught to you in the hospital. Your goals should be to increase bending of your knee to 90 degrees and beyond and to fully straighten your knee. B. You may progress at your own pace from walking with a walker or crutches to a cane; then to no assistive devices. C. Make walking a part of your daily routine. Be up as much as comfortable with rest periods throughout the day. Rest with leg elevation is very important. Use the ice wrap frequently for the first 3-4 weeks. D. There are no restrictions on activities. 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 E. Wear the long elastic stockings (LUKE hose) 20 hours a day for 2 weeks after surgery. They can be removed several times a day for laundering and for a bath. F. You may shower, no tub baths until cleared by your doctor. SPECIAL CARE INSTRUCTIONS: VERY IMPORTANT TO READ AND REVIEW A. There are a few signs you need to watch for after you are home. Call [facility] if you notice any of the followin. Increased severe knee pain. Some pain is expected especially when you exercise. 2. Increased swelling in your leg or knee; pain or swelling of the calf muscle in either lower leg. 3. Any fluid drainage from the incision. 4. Shortness of breath or chest pain. B. Please call [facility] at if you have any concerns or questions about your operation or recovery. The doctor or his nurse will return your call promptly. C. You must take antibiotics before dental work, bladder, bowel or other surgery. Your doctor will provide you with a permanent care to carry describing this precaution. IMPORTANT: * REMEMBER TO TAKE ASPIRIN, 81 MG, TWICE DAILY FOR 4 WEEKS UNLESS OTHERWISE DIRECTED. THIS IS YOUR BLOOD THINNER. * HIGH RISK PATIENTS MAY BE PRESCRIBED A STRONGER BLOOD THINNER. THIS WILL BE PROVIDED AT DISCHARGE. * CALL IF INCREASED PAIN, REDNESS, DRAINAGE OR FEVER GREATER THAT 101. * WEAR LUKE HOSE 20 HOURS PER DAY FOR 2 WEEKS. * DERMABOND Prineo- This is a mesh tape dressing that is covered with glue. It should remain in place until the incision is properly healed, usually 10-14 days. This dressing is designed to naturally slough off. You may trim the excess mesh tape as it peels off. Incision may be briefly wet in a shower. Dry immediately by blotting with a clean, dry towel. Do not bath or swim until instructed by your doctor. Do not scratch, rub, or pick at the dressing. Do not apply any topical ointments or lotions until dressing is completely removed and/or instructed by your doctor. There may be a small piece of suture material at one end of your incision. Do not pull or trim this. If it is bothersome or catching on clothing, you may cover it with a band-aid. IF INCISION IS LEAKING THROUGH DRESSING, CALL THE OFFICE . FOLLOW UP VISIT: If appointment is not already scheduled: Please call [facility] to make a follow-up appointment for 2 weeks after your surgery at . Pending Studies at Discharge: No Stand-Alone Forms: My [facility] [email or web address], Smoking Cessation Medications and DC Order Prescriptions: New aspirin 81 mg Tablet,Delayed Release (Dr/Ec) 81 mg PO BID 30 Days Qty: 60 RF: 0 acetaminophen 500 mg Tablet 1,000 mg PO Q8 21 Days Qty: 126 RF: 0 oxycodone 5 mg Tablet 5 - 10 mg PO Q6H PRN (Reason: pain) Qty: 30 RF: 0 docusate sodium 100 mg Capsule 100 mg PO BID 10 Days Qty: 20 RF: 0 cefadroxil 500 mg capsule 500 mg PO BID 10 Days Qty: 20 RF: 0 Continued carvedilol 12.5 mg Tablet 12.5 mg PO BID RF: 0 atorvastatin 10 mg Tablet 10 mg PO PM RF: 0 lisinopril 20 mg Tablet 20 mg PO BID RF: 0 spironolactone 25 mg Tablet 25 mg PO BID RF: 0 omeprazole 20 mg Capsule,Delayed Release(Dr/Ec) 20 mg PO QAM RF: 0 cholecalciferol (vitamin D3) [Vitamin D3] 25 mcg (1,000 unit) Tablet,Chewable 25 mcg PO BID RF: 0 nitroglycerin [Nitrostat] 0.4 mg Tablet, Sublingual 0.4 mg sublingual UD PRN (Reason: Pain) RF: 0 Discontinued ibuprofen 200 mg Capsule 200 mg PO Q6H PRN (Reason: Pain) RF: 0 aspirin [Aspir-81] 81 mg Tablet,Delayed Release (Dr/Ec) 81 mg PO BID RF: 0 acetaminophen [Tylenol Extra Strength] 500 mg Tablet 1,000 mg PO Q6H PRN (Reason: Pain) RF: 0 Discharge Orders: Discharge Order (Routine); Ordered 02/11/20 Ordered By: Wilian Rashid Admission Data Admit Date/Time: 02/09/20 11:26 Attending Provider: Alonzo Randall Admit Provider: Alonzo Randall Primary Care Provider: Willam Godfrey Other Providers: Spencer Walls ; Godwin Hughes ; Daniel Penn ; Gil Guan ; Holland Paz ; Claude Zimmerman Jr ; Dannie Montoya ; Jennifer Milan ; Stacie Hutchison ; Keyur Butler ; Keyur Carmichael ; Zackery Hunter ; Bandar Nelson ; Antonella Leigh ; Corrie Hickey ; Ko Verdin ; Rayray Gan ; [facility] ; [facility]
== END 2020-02-11 11:53 | disposition home health service (06) | DRG 470 ==
LOC: ASU 07:47 → 3W 11:26